=== PATIENT | male | born 1960 | race Caucasian/White ===

== ENCOUNTER → 2016-04-16 | Outpatient (REF) | payer BC ==
[2016-04-16 13:35] LABS: INR 0.95
== END ==
LOC: M LAB REF 12:51
PROVIDERS: ATTEND Internal Medicine Pulmonary Disease
DX: R91.1 Solitary pulmonary nodule (principal)

== ENCOUNTER → 2016-04-28 | Outpatient (CLI) | payer BC ==
[~2016-04-28] MED LIST: ACETAMINOPHEN 325 MG TAB As Ordered ONE; LIDOCAINE 1% MDV 20ML VIAL As Ordered ONE
--- NOTE | 2016-04-28 13:30 | REP ---
PA chest x-ray: Single view. History: Patient is status post CT guided needle biopsy for a left lower lobe lung nodule. Question pneumothorax. 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 The target nodule is behind the diaphragm on the left and not visible on PA radiograph. There is no evidence of pneumothorax or hydrothorax. Mediastinum is not widened. Heart size is normal. Impression: No complication is identified. Signed by Juan Kamara MD 04/28/2016 03:16 P
--- NOTE | 2016-04-28 16:57 | REP ---
CT GUIDED LEFT LOWER LOBE BIOPSY: The procedure was performed under the direct supervision of Dr. Kamara. The patient has history of a 1.3 x 1.2 nodule in the left lower lobe seen on a previous CT scan from [facility] on 03/19/2016. The risks and benefits of the procedure were explained to the patient and informed consent was obtained. The left lower lobe lung nodule was localized using CT guidance. The skin was prepped and draped in a sterile fashion. 1% lidocaine was used as a local anesthetic. Using CT guidance a 19/20-gauge coaxial needle biopsy system was inserted and advanced into the nodule. Four core biopsy samples were obtained and sent to the lab. The patient tolerated the procedure well and there were no immediate complications. After the appropriate amount of monitored convalescence the patient was discharged from the department. Reviewed by STEVE Christopher 04/28/2016 05:04 PEdited and Signed by Juan Kamara MD 04/29/2016 12:30 P
== END ==
LOC: M RADPRO 08:24
PROVIDERS: ATTEND Internal Medicine Pulmonary Disease
DX: R91.1 Solitary pulmonary nodule (principal); I10 Essential (primary) hypertension; E78.5 Hyperlipidemia, unspecified; F17.200 Nicotine dependence, unspecified, uncomplicated; Z79.899 Other long term (current) drug therapy

== ENCOUNTER 2023-12-03 07:59 | Observation (INO) | payer MEDICARE ==
[~2023-12-03] VITALS: Ht 177.8 cm; Wt 77.7 kg
[2023-12-03] VITALS (7 sets, daily range): BP systolic 103–115; BP diastolic 62–72; TEMP 97.7–98.2; O2SAT 95–97
[~2023-12-03 07:59] MED LIST changes: -ACETAMINOPHEN 325 MG TAB As Ordered ONE; +ATOR1TAB21 PO; -LIDOCAINE 1% MDV 20ML VIAL As Ordered ONE; +LISI20TA33 PO; +MAGN400T33 PO; +SENS90TA PO; +SILD25TA2 PO
[2023-12-03] MEDS ORDERED: MIDAZOLAM INJ 2MG/2ML VIAL As Ordered ONE (08:04)
[2023-12-03] MEDS ORDERED: fentaNYL 100 MCG/2 ML INJECTION As Ordered ONE (08:06)
[2023-12-03] MEDS ORDERED: LR 1,000 ML IV SCH (08:25)
[2023-12-03] MEDS ORDERED: LIDOCAINE 2% 100MG/5ML SDV (FOR ANES.) As Ordered ONE (09:45)
[2023-12-03] MEDS ORDERED: ROCURONIUM BROMIDE 50MG/5ML VIAL As Ordered ONE (09:46)
[2023-12-03] MEDS ORDERED: ONDANSETRON 4MG 2ML VIAL As Ordered ONE (09:49)
[2023-12-03] MEDS ORDERED: SUCCINYLCHOLINE 100MG/5ML SYRINGE As Ordered ONE (10:34)
[2023-12-03] MEDS ORDERED: PHENYLephrine 500MCG 5ML (100MCG/ML) SYRINGE As Ordered ONE (10:55)
[2023-12-03] MEDS ORDERED: ePHEDrine SULFATE 25 MG/5 ML(5MG/ML) SYRINGE As Ordered ONE (10:57)
[2023-12-03] MEDS ORDERED: propofoL 200 MG/20 ML VIAL As Ordered ONE (11:14)
[2023-12-03] MEDS ORDERED: ACETAMINOPHEN 1000MG 100ML IV BAG As Ordered ONE (11:14)
[2023-12-03] MEDS ORDERED: PHENYLEPHRINE 10MG/ML 1ML VIAL As Ordered ONE (11:22)
[2023-12-03] MEDS: LIDOCAINE W/EPINEPHRINE 1% 20ML VIAL As Ordered ONE (11:25)
[2023-12-03] MEDS ORDERED: ONDANSETRON 4MG 2ML VIAL IV PRN (13:55)
[2023-12-03] MEDS ORDERED: fentaNYL 100 MCG/2 ML INJECTION IV PRN (13:55)
[2023-12-03] MEDS: LR 1,000 ML IV SCH ×2 (13:55→18:37)
[2023-12-03] MEDS: HYDROMORPHONE HCL 0.5 MG/ 0.5 ML SYRINGE IV PRN (14:17)
[2023-12-03] MEDS: oxyCODONE 5MG TAB PO PRN (14:49)
[2023-12-03 15:48] LABS: BASO # 0.1 10^3/uL (0.0-0.2); BASO % 0.3 % (0.0-1.0); EOS # 0.1 10^3/uL (0.0-0.5); EOS % 0.4 % (0.0-3.0); HEMOGLOBIN 11.1 g/dl (13.5-17.5); LYMPH # 0.8 10^3/uL (1.5-5.0); LYMPH % 4.8 % (24.0-44.0); MEAN CORPUSCULAR HEMOGLOBIN 30.4 pg (27.0-33.0); MEAN CORPUSCULAR HGB CONC 31.7 g/dl (32.0-36.5); MEAN CORPUSCULAR VOLUME 95.9 fl (80.0-96.0); MONO # 0.3 10^3/uL (0.0-0.8); MONO % 1.5 % (2.0-8.0); NEUTROPHILS # 15.4 10^3/uL (1.5-8.5); NEUTROPHILS % 92.6 % (36.0-66.0); PLATELET COUNT, AUTOMATED 230 10^3/uL (150-450); RED BLOOD COUNT 3.65 10^6/uL (4.30-6.10); WHITE BLOOD COUNT 16.7 10^3/uL (4.0-10.0)
[2023-12-03 17:11] LABS: CALCIUM LEVEL 11.7 MG/DL (8.3-10.6); CREATININE FOR GFR 2.09 MG/DL (0.70-1.30); GLOMERULAR FILTRATION RATE 34.1 (>49); POTASSIUM SERUM 5.6 MMOL/L (3.5-5.1)
[2023-12-03] MEDS ORDERED: LISI40TA4 PO (18:08)
[2023-12-03] MEDS ORDERED: HOME MED LIST COMPLETE! XX SCH (18:10)
[2023-12-03] MEDS ORDERED: NS 1,000 ML IV SCH (18:20)
[2023-12-03] MEDS: NS 1,000 ML IV SCH (18:48)
[2023-12-03] MEDS: AUGMENTIN 875 MG TAB PO SCH (21:32)
[2023-12-03] MEDS: HYDROMORPHONE HCL 0.5 MG/ 0.5 ML SYRINGE IV ONE (21:32)
[2023-12-04] VITALS (9 sets, daily range): BP systolic 101–115; BP diastolic 64–76; TEMP 97.3–98.2; O2SAT 94–98
[2023-12-04] MEDS ORDERED: UNRESOLVED CLARIFICATION ENTRY XX SCH (00:01)
[2023-12-04] MEDS: PATIROMER SORBITEX CALCIUM 8.4 GM POWDER PACKET (VELTASSA) PO ONE ×2 (00:03→06:29)
[2023-12-04 04:53] LABS: IONIZED CALCIUM 5.3 MG/DL (4.5-5.3)
[2023-12-04 04:59] LABS: BASO % 0.2 % (0.0-1.0); EOS % 0.2 % (0.0-3.0); HEMATOCRIT 32.5 % (42.0-52.0); HEMOGLOBIN 10.3 g/dl (13.5-17.5); LYMPH # 1.3 10^3/uL (1.5-5.0); LYMPH % 6.5 % (24.0-44.0); MEAN CORPUSCULAR HEMOGLOBIN 30.4 pg (27.0-33.0); MEAN CORPUSCULAR HGB CONC 31.7 g/dl (32.0-36.5); MEAN CORPUSCULAR VOLUME 95.9 fl (80.0-96.0); MONO # 1.1 10^3/uL (0.0-0.8); MONO % 5.8 % (2.0-8.0); NEUTROPHILS # 16.8 10^3/uL (1.5-8.5); NEUTROPHILS % 86.6 % (36.0-66.0); PLATELET COUNT, AUTOMATED 221 10^3/uL (150-450); RED BLOOD COUNT 3.39 10^6/uL (4.30-6.10); WHITE BLOOD COUNT 19.4 10^3/uL (4.0-10.0)
[2023-12-04 05:29] LABS: PTH INTACT 13.8 PG/ML (18.5-88.0)
[2023-12-04 06:02] LABS: CALCIUM LEVEL 10.2 MG/DL (8.3-10.6); CREATININE FOR GFR 2.04 MG/DL (0.70-1.30); GLOMERULAR FILTRATION RATE 35.1 (>49); POTASSIUM SERUM 5.9 MMOL/L (3.5-5.1)
[2023-12-04] MEDS: CALCIUM GLUCONATE 1,000 MG in D5W MINI-BAG PLUS 100 ML IV ONE (06:25)
[2023-12-04] MEDS ORDERED: oxyCODONE 5MG TAB PO PRN ×2 (06:45)
[2023-12-04] MEDS: DEXTROSE 50% 50ML SYRINGE IV STA (06:58)
[2023-12-04] MEDS: HumuLIN R (REGULAR) INSULIN (NovoLIN R) **100U/ML** PER UNIT IV STA (06:58)
[2023-12-04] MEDS: ACETAMINOPHEN 500 MG TAB PO PRN (06:59)
[2023-12-04] MEDS: ENOXAPARIN 40MG/0.4ML SYRINGE (J1650 PER 10MG) SC SCH (10:10)
[2023-12-04 14:22] LABS: IONIZED CALCIUM 5.1 MG/DL (4.5-5.3)
[2023-12-04 14:57] LABS: CALCIUM LEVEL 10.1 MG/DL (8.3-10.6)
[2023-12-05] VITALS: BP 116/67; TEMP 98.1; O2SAT 97
[2023-12-05 03:57] LABS: IONIZED CALCIUM 4.8 MG/DL (4.5-5.3)
[2023-12-05 04:00] VITALS: BP 117/69; TEMP 98.1; O2SAT 97
[2023-12-05 04:01] LABS: HEMATOCRIT 32.8 % (42.0-52.0); HEMOGLOBIN 10.3 g/dl (13.5-17.5); MEAN CORPUSCULAR HEMOGLOBIN 30.8 pg (27.0-33.0); MEAN CORPUSCULAR HGB CONC 31.4 g/dl (32.0-36.5); MEAN CORPUSCULAR VOLUME 98.2 fl (80.0-96.0); PLATELET COUNT, AUTOMATED 219 10^3/uL (150-450); RED BLOOD COUNT 3.34 10^6/uL (4.30-6.10); WHITE BLOOD COUNT 12.8 10^3/uL (4.0-10.0)
[2023-12-05 05:21] LABS: CALCIUM LEVEL 9.3 MG/DL (8.3-10.6); CREATININE FOR GFR 1.84 MG/DL (0.70-1.30); GLOMERULAR FILTRATION RATE 39.5 (>49); PHOSPHORUS LEVEL 2.3 MG/DL (2.4-5.1); POTASSIUM SERUM 4.8 MMOL/L (3.5-5.1)
[2023-12-05 12:00] VITALS: BP 131/73; TEMP 98.6; O2SAT 96
[2023-12-05] MEDS ORDERED: AMOX875T2 PO (12:36)
[2023-12-05] MEDS ORDERED: NORV5TAB PO (12:37)
== END 2023-12-05 15:30 | disposition home or self-care (01) ==
LOC: M SDC 07:59 → M MSPAV 08:00
PROVIDERS: ADMIT Internal Medicine; ATTEND Internal Medicine
DX: E21.0 Primary hyperparathyroidism (principal); D35.1 Benign neoplasm of parathyroid gland; E83.52 Hypercalcemia; I10 Essential (primary) hypertension; E78.5 Hyperlipidemia, unspecified; D72.829 Elevated white blood cell count, unspecified; F17.218 Nicotine dependence, cigarettes, with other nicotine-induced disorders; F12.10 Cannabis abuse, uncomplicated; E87.5 Hyperkalemia; Z79.2 Long term (current) use of antibiotics; Z79.899 Other long term (current) drug therapy
CPT/HCPCS: 36415; 60500; 80048; 82310; 82330; 83970; 84100; 84132; 85025; 85027; 88307; 96361; 96372; 96374; 96375; G0378; J0131; J0330; J0612; J1100; J1170; J1650; J1815; J2250; J2371; J2405; J3010